=== PATIENT | female | born 2005 | race Caucasian/White ===

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

== ENCOUNTER 2024-12-22 10:54 | Outpatient (CLI) | payer OTHER, SELFPAY ==
[2024-12-22 11:18] LABS: Hematocrit 42.5 % (37.0-47.0); Hemoglobin 13.9 g/dL (12.0-15.0); Immature Granulocyte Percent A 0.3 % (0-0.5); Lymphocytes Absolute Auto 1.70 K/mm3 (0.9-3.2); Mean Corpuscular HGB Conc 32.7 g/dl (32-36); Mean Corpuscular Hemoglobin 28.7 pg (26-34); Mean Corpuscular Volume 87.8 fl (80-100); Nucleated Red Blood Cells Absolute Auto 0.000 K/mm3 (0.0-0.012); Nucleated Red Blood Cells Perc 0.0 % (0.0-0.2); Platelet Count Result 168 k/mm3 (150-375); Red Blood Count 4.84 M/mm3 (4.2-5.4); White Blood Count 7.6 K/mm3 (4.5-10.0)
--- OUTSIDE RECORDS SUMMARY | 2024-12-22 11:28 | XMS_ITS | Clinical Summary ---
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 Gender Identity Not on file Sexual Orientation Not on file Last Filed Vital Signs Vital Sign Reading Time Taken Comments Blood Pressure 122/80 05/05/2020 7:59 AM ELEMENTARY SPANISH TEACHER Pulse 90 05/05/2020 7:59 AM ELEMENTARY SPANISH TEACHER Temperature 37.6 C (99.6 F) 05/05/2020 7:59 AM ELEMENTARY SPANISH TEACHER Respiratory Rate 18 05/05/2020 7:59 AM ELEMENTARY SPANISH TEACHER Oxygen Saturation 98% 05/05/2020 7:59 AM ELEMENTARY SPANISH TEACHER Inhaled Oxygen Concentration - - Weight 119.3 kg (263 lb) 05/05/2020 7:59 AM ELEMENTARY SPANISH TEACHER Height - - Body Mass Index - - Plan of Treatment Health Maintenance Due Date Last Done Comments Hepatitis C Virus (HCV) Screening 2003 Meningococcal B Immunization (2 of 2 - Trumenba SCDM 2-dose series) 04/20/2020 10/19/2019 SARS-COV-2 Immunization ( - season) 2024 Influenza Immunization (#1) 2025 11/0 08/2018, 03/13/2018, 02/14/2016, Additional history exists Respiratory Syncytial Virus (RSV) Immunization (Adult) (1 - 1-dose 75+ series) 2078 Hepatitis B Immunization Completed 004, 2003, 2003, Additional history exists Pneumococcal Immunization Combined Completed 06/18/2005, 10/05/2004, 07/06/2004, Additional history exists Hepatitis A Immunization Discontinued 01/04/2008, 05/27 Measles Mumps Rubella (MMR) Immunization Discontinued 10/05/2008, 10/05/2004 Polio (IPV) Immunization Discontinued 009, 03/29/2004, 2003, Additional history exists Varicella Immunization Discontinued 9, 10/05/2004, 07/06/2004 DTaP/Tdap/Td Immunization Discontinued 2014, 01/04/2008, 10/05/2004, Additional history exists TdaP Immunization Completed 12/19/2014 Human Papillomavirus (HPV) Immunization Completed 10/19/2019, 01/30/2018 Meningococcal Immunization (ACWY) Completed 10/19/2019, 12/19/2014 Rotavirus Immunization Aged Out No lo nger eligible based on patient's age to complete this topic Insurance [employer] A[employer] SOI Care Teams Cod Clerk Relationship Specialty Start Date End Date Ivy Olvera MD [address] [address] PCP - General Pediatrics 05/05/20
--- OUTSIDE RECORDS SUMMARY | 2024-12-22 11:28 | XMS_ITS | Clinical Summary ---
Author Organization [facility]iki [facility] Address [address] [place] [address] Care Team Providers Care Shade Bander Name Role Phone Unavailable Primary Care Provider Unavailabl e Allergies No known active allergies Medications No known medications Active Problems No known active problems Encounters Date Type Department Care Team Description 12/22/2024 10:30 AM CDT Office Visit [facility] Oncology and Hematology - [place] [address] [place] [id number] Ayad Shepherd MD Other secondary thrombocytopenia (Primary Dx) from Last 3 Months Family History Medical History Relation Name Comments No Known Problems Brother 1 Diabetes Brother 2 No Known Problems Brother 3 No Known Problems Father No Known Problems Mother Relation Name Status Comments Brother 1 Alive Brother 2 Alive Brother 3 Alive Father Alive Mother Alive Social History Tobacco Use Types Packs/Day Years Used Date Smoking Tobacco: Never Smokeless Tobacco: Never Alcohol Use Standard Drinks/Week Comments Never 0 (1 standard drink = 0.6 oz pur e alcohol) Comments Unknown Sex and Gender Information Value Date Recorded Sex Assigned at Not on file Legal Sex Female 1:29 PM CDT Gender Identity Not on file Sexual Orientation Not on file Last Filed Vital Signs Vital Sign Reading Time Taken Comments Blood Pressure 132/76 12/22/2024 10:17 AM CDT Pulse 76 12/22/2024 10:17 AM CDT Temperature 37.2 C (98.9 F) 12/22/2024 10:17 AM CDT Respiratory Rate 14 12/22/2024 10:17 AM CDT Oxygen Saturation 98% 12/22/2024 10:17 AM CDT Inhaled Oxygen Concentration - - Weight 105 kg (231 lb 6.4 oz) 12/22/2024 10:17 A M CDT Height 175.3 cm (5' 9) 12/22/2024 10:17 AM CDT Body Mass Index 34.17 12/22/2024 10:17 AM CDT Plan of Treatment Upcoming Encounters Date Type Department Care Team (Late st Contact Info) Description 01/11/2025 4:30 PM CDT Telephone Check Up [facility] Oncology and Hematology - [place] [address] [facility] [address] [place] [address] Ayad Shepherd MD [address] [facility] [employer] [address] [place] [address] Health Maintenance Due Date Last Done Comments CHLAMYDIA SCREENING (ANNUAL) 11-24 YEARS 2014 HPV VACCINES (1 - 3-dose series) 2018 DTAP/TDAP/TD VACCINES (1 - Tdap) 2022 HEPATITIS B VACCINES (1 of 3 - 19+ 3-dose series) 04/25 CERVICAL CANCER SCREENING 2024 HPV/Cotest (21-29) 2024 PAP SMEAR 2024 Preventative Visit- Commercial 05/26/2024 INFLUENZA VACCINE (#1) 2024 Insurance AETNA CHOICE POS II
--- OUTSIDE RECORDS SUMMARY | 2024-12-22 11:28 | XMS_ITS | Encounter Summary ---
Author Organization [facility] Address [address] [place] [address] Care Team Providers Care Taper And Floater Name Role Phone Unavailable Primary Care Provider Unavailabl e Reason for Referral * Radiology Services (Routine) - Closed Specialty Diagnoses / Procedures Referred By Contaleksandr t Referred To Contact Diagnoses Other secondary thrombocytopenia Procedures US ABDOMEN COMPLETE Ayad Shepherd MD [address] [address] Phone: tel: fax: [facility] [address] [address] Phone: tel: fax: Referral ID Status Reason Start Date Expiration Date V isits Requested Visits Authorized [id number] Closed [facility] CTS 12/22/2024 01/22/2026 1 1 Reason for Visit * Reason Comments Establish Care Encounter Details Date Type Department Care Team (Late st Contact Info) Description 12/22/2024 10:30 AM CDT Office Visit [facility] Oncology and Hematology - [place] [address] [place] [address] [address] [place] [address] Ayad Shepherd MD [address] [phone] Other secondary thrombocytopenia (Primary Dx) Social History Tobacco Use Types Packs/Day Years Used Date Smoking Tobacco: Never Smokeless Tobacco: Never Alcohol Use Standard Drinks/Week Comments Never 0 (1 standard drink = 0.6 oz pur e alcohol) Comments Unknown Sex and Gender Information Value Date Recorded Sex Assigned at Not on file Legal Sex Female 1:29 PM CDT Gender Identity Not on file Sexual Orientation Not on file documented as of this encounter Last Filed Vital Signs Vital Sign Reading [...] Mass Index 34.17 12/22/2024 10:17 AM CDT documented in this encounter Progress Notes * Ayad Shepherd MD - 12/22/2024 10:21 AM CDT Hematology-oncology consult Note Requesting Physician Kostas Shultz MD Primary Care Physician No primary care provider on file. Problem list There is no problem list on file for this patient. Previous TREATMENT ? Measurable Disease ? Reason for Visit Vanessa Berry is a 19 y.o. female who was referred for consultation for thrombocytopenia. History of present illness This is a pleasant 19-year-old slightly obese female who has been in [facility] referred to me for thrombocytopenia. According to the mom she has been dealing with a low platelet count for last 2 years duration. Mother also has elevated mean platelet volume but platelet counts were normal. Patient has been dealing with easy bruising but no bleeding. Her menstrual bleeding is also heavy for the first few days. She denies any history of liver disease and spleen disorders. Denies any fever chills or night sweats. Denies any abdominal pain. Denies any diarrhea and constipation. No melena hematochezia. She has occasional headaches. Her labs from August 2024 showed WBC 3.6 hemoglobin 13.2 with platelet of 126,000. Denies any other complaints. Past Medical History No past medical history on file. Surgical History Past Surgical History: Procedure Laterality Date HX LASER EYE SURGERY HX TONSILLECTOMY Medications No current outpatient medications on file. No current facility-administered medications for this visit. Allergies No Known Allergies Immunizations: There is no immunization history on file for this patient. Family History Family History Problem Relation Name Age of Onset No Known Problems Father No Known Problems Mother No Known Problems Brother Diabetes Brother No Known Problems Brother Social History Social History Tobacco Use Smoking status: Never Smokeless tobacco: Never Substance Use Topics Alcohol use: Never Review of Systems Constitutional: Patient did not mention fever; no night sweats; no anorexia; no weight loss; no fatique NEENT: Patient did not mention headache; no change in vision; no change in hearing; no sore throat;no dysphagia Respiratory: Patient did not mention shortness of breath; no pleuritic chest pain; no cough; no hemoptysis Cardiac: Patient did not mention cardiac-like chest pain; no palpitations; no orthopnea; no PND; noDOE Breasts: Patient did not mention tenderness; no masses GI: Patient did not mention abdominal pain; no nausea; no vomiting; no diarrhea; no hematochezia; no melena : Patient did not mention dysuria; no frequency; no hesitancy; no hematuria CORRECTIONAL MEDICINE PHYSICIAN: Musculosketetal: Patient did not mention bone pain; no arthralgia; no joint swelling; no myalgia; Skin: Patient did not mention pruritis; no rash; no petechiae; no ecchymoses Endocrine: Patient did not mention polydipsia; no polyuria; no unusual weight gain Neuro: Patient did not mention headache; no change in vision; no sensory changes; no muscle weakness; no confusion; no seizures Psych: Patient did not mention anxiety; no depression; Physical Exam Vitals: As per nursing note Constitutional: Well developed, well nourished, no acute distress, non-toxic appearance Teeth and gum. No signs of infection or swelling. Eyes: PERRL, conjunctiva normal HEENT: Atraumatic, external ears normal, nose normal, oropharynx moist, no pharyngeal exudates. no sinus tenderness Neck- normal range of motion, no tenderness, supple Respiratory: No respiratory distress, normal breath sounds, no rales, no wheezing Cardiovascular: Normal rate, normal rhythm, no murmurs, no gallops, no rubs GI: Soft, nondistended, normal bowel sounds, nontender, no splenomegaly, no hepatomegaly, no mass, no rebound, no guarding : No costovertebral angle tenderness Musculoskeletal: No edema, no tenderness, no deformities. Back- no tenderness Integument: Well hydrated, no rash, Digits and nails inspection normal Lymphatic: No lymphadenopathy noted Neurologic: Alert & oriented x 3, CN 2-12 normal, normal motor function, normal sensory function, no focal deficits noted Psychiatric: Speech and behavior appropriate ? labs No results found for this or any previous visit (from the past 24 hours). Labs from August 24, 2024 showed WBC 3.6 hemoglobin 13.2 platelet 126,000 mean platelet volume 12.7 neutrophil 59% lymphocyte 31% Pathology ? Imaging & Other Studies Performance Status? Assessment / Plan: ? Thrombocytopenia. Patient is a pleasant 19-year-old slightly obese female who has been [place] and currently not taking any medications other than multivitamins. She has been dealing with thrombocytopenia for the last 2 years duration. She denies any chest pain and shortness of breath. Denies any night sweats fevers and chills. Her weight and appetite stable. She has heavy menstrual bleeding. Denies any history of liver disease. She does not drink any alcohol. Mother informed me that she also has high mean platelet volume but normal platelet counts.I have discussed the differential diagnosis of thrombocytopenia with the patient that includes nutritional deficiency like jared min B-12 and folic acid deficiency and iron deficiency. We also discussed possibility of congenitalthrombocytopenia. Other possibilities include drug induced thrombocytopenia, autoimmune thrombocytopenia, bone marrow disorders like myelodysplasia and splenic sequestration with possible liver disease. I will order the workup that would include abdominal ultrasound, vitamin B12 and folic acid levels and iron studies. I will repeat CBC with differential and CMP. I will also check platelet antibodies. No need for bone marrow biopsy testing. I answered all the questions to patient's satisfaction. Thank you very much for allowing me to participate in Vanessa Berry's evaluation and management. Please feel free to contact if I can be of any further assistance in your patient???s care requiring hematology or oncology evaluation. Sincerely, ? ? Ayad Shepherd M.D. cell TOBACCO COUNSELING She is not a tobacco/nicotine user. Ayad Shepherd MD ,12/22/2024 10:42 AM ? Total time spent 60 minutes, two third of the total time spent counseling patient [id number]. CC:?Kostas Shultz MD documented in this encounter Plan of Treatment Upcoming Encounters Date Type Department Care Team (Late st Contact Info) Description 01/11/2025 4:30 PM CDT Telephone Check Up [facility] Oncology and Hematology - [place] [address] [facility] [address] [place] [address] Ayad Shepherd MD [address] [facility] [address] [place] [address] Scheduled Orders Name Type Priority Associated Diagnoses Orde r Schedule CBC WITH DIFFERENTIAL Lab Stat Other secondary thrombocytopenia Expected: 12/22/2024, Expires: 12/22/2025 COMPREHENSIVE METABOLIC PANEL Lab Stat Other secondary thrombocytopenia Expected: 12/22/2024, Expires: 12/22/2025 FERRITIN Lab Routine Other secondary thrombocytopenia Expected: 12/22/2024, Expires: 12/22/2025 IRON, TIBC, AND PERCENT SATURATION Lab Routine Other secondary thrombocytopenia Expected: 12/22/2024, Expires: 12/22/2025 VITAMIN B12 AND FOLATE Lab Routine Other secondary thrombocytopenia Expected: 12/22/2024, Expires: 12/22/2025 METHYLMALONIC ACID Lab Routine Other secondary thrombocytopenia Expected: 12/22/2024, Expires: 12/22/2025 TRANSFERRIN RECEPTOR TFR SOLUBLE Lab Routine Other secondary thrombocytopenia Expected: 12/22/2024, Expires: 12/22/2025 US ABDOMEN COMPLETE Imaging Routine Other secondary thrombocytopenia 1 Occurrences starting 12/22/2024 until 12/22/2025 MISCELLANEOUS LAB TEST Lab Routine Other secondary thrombocytopenia Expected: 12/22/2024, Expires: 12/22/2025 HU SCREEN W/REFLEX Lab Routine Other secondary thrombocytopenia Expected: 12/22/2024, Expires: 12/22/2025 documented as of this encounter Visit Diagnoses Diagnosis Other secondary thrombocytopenia- Primary documented in this encounter
--- OUTSIDE RECORDS SUMMARY | 2024-12-22 11:28 | XMS_ITS | Clinical Summary ---
Author Organization [facility] [employer] Address [address] [facility] [place] [address] Care Team Providers Care Station Chief Name Role Phone Ivy Olvera MD Primary Care Provider [phone] Source Comments [facility] [employer],non-owned Affiliates and Associated Physician Practices is amultiple site organization consisting of ambulatory clinics and hospital sitesin [place], [place], [place] and [place]. This disclosure is being madepursuant to the Care Everywhere program and may not contain all information available regarding this patient. Last updated 18.[facility] [employer] Allergies No known active allergies Medications * Be aware that medications may not be up to date on this document. Alwaysverify current medications with the patient. clindamycin-sandra zoyl peroxide (BENZACLIN) 1-5 % gelIndications: Encounter for medication refill Apply to affected area 2 times daily 50 g 2 04/27/2019 Active Active Problems No known active problems Social History Tobacco Use Types Packs/Day Years Used Date Smoking Tobacco: Never Smokeless Tobacco: Never Comments No Sex and Gender Information Value Date Recorded Sex Assigned at Not on file Legal Sex Female 7:[address] ENG[address]ER Gender Identity Not on file Sexual Orientation Not on file Last Filed Vital Signs Vital Sign Reading Time Taken Comments Blood Pressure 124/82 02/18/2020 9:04 AM CDT Pulse 89 02/18/2020 9:04 AM CDT Temperature 36.4 C (97.6 F) 02/18/2020 9:04 AM CDT Respiratory Rate 16 02/18/2020 9:04 AM CDT Oxygen Saturation 98% 02/18/2020 9:04 AM CDT Inhaled Oxygen Concentration - - Weight 117.9 kg (260 lb) 02/18/2020 9:04 AM CDT Height 175.3 cm (5' 9) 02/18/2020 9:04 AM CDT Body Mass Index 38.4 02/18/2020 9:04 AM CDT Plan of Treatment Health Maintenance Due Date Last Done Comments HIV SCREENING 2018 HPV VACCINE (1 - 3-dose series) 2018 CHLAMYDIA/GONORRHEA SCREENING 2019 MENINGOCOCCAL (Group B) VACC INE SHARED DECISION-MAKING (1 of 2 - Standard) 2019 HEPATITIS C SCREENING 05/05/2021 DTAP/TDAP/TD VACCINES (1 - Tdap) 2022 HEPATITIS B VACCINE (1 of 3 - 19+ 3-dose series) 2022 COVID-19 VACCINE (1 - 2023-2 5 season) 2024 DEPRESSION SCREENING 05/26/2024 INFLUENZA VACCINE (#1) 2025 ZOSTER VACCINE (1 of 2) 2053 HIB VACCINE Aged Out No longer eligi ble based on patient's age to complete this topic MENINGOCOCCAL GROUPS A/C/Y/W VACCINE Aged Out No longer eligible b ased on patient's age to complete this topic PNEUMOCOCCAL VACCINE Aged Out No long er eligible based on patient's age to complete this topic Insurance AETNA Care Teams Station Chief Relationship Specialty Start Date End Date Ivy Olvera MD [address] [place] [id number] PCP - General Pediatrics 04/19/17
[2024-12-22 16:42] LABS: Iron 129 ug/dL (37-170)
[2024-12-22 16:43] LABS: Alanine Aminotransferase 23 U/L (6-35); Albumin Level 4.5 g/dL (3.5-5.1); Alkaline Phosphatase 43 U/L (38-126); Anion Gap 7 mmol/L (4-12); Aspartate Amino Transferase 55 U/L (14-36); Bilirubin,Total 0.7 mg/dL (0.2-1.3); Blood Urea Nitrogen 16 mg/dL (7-17); Calcium 9.4 mg/dL (8.4-10.2); Carbon Dioxide 26 mmol/L (22-30); Chloride 102 mmol/L (98-107); Estimated Glomerular Filt Rate > 60; Glucose 86 mg/dL (65-110); Potassium 4.5 mmol/L (3.4-5.0); Sodium 135 mmol/L (137-145); Total Protein 8.2 g/dL (6.3-8.2)
[2024-12-22 17:00] LABS: Percent Iron Saturation 40 % (20-50)
[2024-12-22 17:25] LABS: Ferritin 44.40 ng/mL (6.24-137)
[2024-12-22 17:55] LABS: Vitamin B12 502.0 pg/mL (239-931)
== END 2024-12-22 10:55 | disposition home or self-care (01) ==
LOC: ANHLAB 10:59
PROVIDERS: PCP Internal Medicine; Visit Provider Internal Medicine Hematology & Oncology
DX: D69.59 Other secondary thrombocytopenia (principal)
CPT/HCPCS: 36415; 80053; 82607; 82728; 82746; 83540; 83550; 83921; 84238; 85025; 86022

== ENCOUNTER 2025-01-06 10:45 | Outpatient (CLI) | payer OTHER, SELFPAY ==
--- OUTSIDE RECORDS SUMMARY | 2025-01-06 11:02 | XMS_ITS | Clinical Summary ---
Author Organization [facility] [place] Address [address] [place] [address] Care Team Providers Care Mold Bunch Trimmer Name Role Phone Unavailable Primary Care Provider Unavailabl e Allergies No known active allergies Medications No known medications Active Problems No known active problems Encounters Date Type Department Care Team Description 12/29/2024 External Device Data STL ABSTRACTION Provider, Abstract 12/28/2024 External Device Data ST[facility] ABSTRACTION Provider, Abstract 12/28/2024 External Device Data [facility] ABSTRACTION Provider, Abstract 12/28/2024 Orders Only [facility] - [place] [address] [place] [address] Ayad Shepherd MD 12/27/2024 Orders Only [facility] - [place] [address] [place] [address] Ayad Shepherd MD 12/23/2024 Orders Only [facility] - [place] [address] [place] [address] Ayad Shepherd MD 12/22/2024 10:30 AM CDT Office Visit [facility] - [place] [address] [place] [address] Ayad Shepherd MD Other secondary thrombocytopenia (Primary [...] 01/11/2025 4:30 PM CDT Telephone Check Up [facility] - [place] [address] [facility] [address] [place] [address] Ayad Shepherd MD [address] [facility] [address] [place] [address] Health Maintenance Due Date Last Done Comments CHLAMYDIA SCREENING (ANNUAL) 11-24 YEARS 2014 HPV VACCINES (1 - 3-dose series) 2018 DTAP/TDAP/TD VACCINES (1 - Tdap) 2022 HEPATITIS B VACCINES (1 of 3 - 19+ 3-dose series) 04/25 CERVICAL CANCER SCREENING 2024 HPV/Cotest (21-29) 2024 PAP SMEAR 2024 Preventative Visit- Commercial 05/26/2024 INFLUENZA VACCINE (#1) 2024 Procedures Procedure Name Priority Date/Time Associated Diagnosis Comments BETA 2 GLYCOPROTEIN I ANTIBODIES Routine 12/22/2024 10:39 AM CDT CHG SOLUBLE TRANSFERRIN RECEPTOR Routine 12/22/2024 10:33 AM CDT COMPREHENSIVE METABOLIC PANEL Routine 12/22/2024 8:37 AM CDT COMPREHENSIVE METABOLIC PANEL Routine 12/22/2024 8:34 AM CDT CBC WITH AUTODIFFERENTIAL Routine 2024 8:02 AM CDT METHYLMALONIC ACID Routine 12/22/2024 7: 58 AM CDT from Last 3 Months Results * BETA 2 GLYCOPROTEIN I ANTIBODIES (12/22/2024 10:39 AM CDT) Blood us Ayad Shepherd MD CHEMISTRY ORDERABLES Final Resu lt * CHG SOLUBLE TRANSFERRIN RECEPTOR (12/22/2024 10:33 AM CDT) us Ayad Shepherd MD CHG - LABORATORY Final Result * COMPREHENSIVE METABOLIC PANEL (12/22/2024 8:37 AM CDT) Only the most recent of2 resultswithin the time period is included. Blood us Ayad Shepherd MD CHEMISTRY ORDERABLES Final Resu lt * CBC WITH AUTODIFFERENTIAL (12/22/2024 8:02 AM CDT) Blood us Ayad Shepherd MD HEMATOLOGY ORDERABLES Final Res ult * METHYLMALONIC ACID (12/22/2024 7:58 AM CDT) Blood us Ayad Shepherd MD CHEMISTRY ORDERABLES Final Resu lt from Last 3 Months Insurance [employer] CHOICE POS II
--- OUTSIDE RECORDS SUMMARY | 2025-01-06 11:02 | XMS_ITS | Clinical Summary ---
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 Gender Identity Not on file Sexual Orientation Not on file Last Filed Vital Signs Vital Sign Reading Time Taken Comments Blood Pressure 122/80 05/05/2020 7:59 AM ROOFING LABORER Pulse 90 05/05/2020 7:59 AM ROOFING LABORER Temperature 37.6 C (99.6 F) 05/05/2020 7:59 AM ROOFING LABORER Respiratory Rate 18 05/05/2020 7:59 AM ROOFING LABORER Oxygen Saturation 98% 05/05/2020 7:59 AM ROOFING LABORER Inhaled Oxygen Concentration - - Weight 119.3 kg (263 lb) 05/05/2020 7:59 AM ROOFING LABORER Height - - Body Mass Index - [...] patient's age to complete this topic Insurance Advebs [employer] SOI Care Teams Remelt Sugar Boiler Relationship Specialty Start Date End Date Ivy Olvera MD [address] [place] [address] [id number] PCP - General Pediatrics 05/05/20
--- OUTSIDE RECORDS SUMMARY | 2025-01-06 11:02 | XMS_ITS | Clinical Summary ---
Author Organization [facility] Address [address] [place] [address] Care Team Providers Care Fbi Profiler Name Role Phone Ivy Olvera MD Primary Care Provider Source Comments [facility],non-owned Affiliates and Associated Physician Practices is amultiple site organization consisting of ambulatory clinics and hospital sitesin [place], [place], [place] and [place]. This disclosure is being madepursuant to the Care Everywhere program and may not contain all information available regarding this patient. 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
[2025-01-07 14:08] LABS: ANA by IFA Rfx Titer/Pattern Negative (.)
== END 2025-01-06 10:46 | disposition home or self-care (01) ==
LOC: ANHLAB 10:46
PROVIDERS: PCP Pediatrics Adolescent Medicine; Visit Provider Internal Medicine Hematology & Oncology
DX: D69.59 Other secondary thrombocytopenia (principal)
CPT/HCPCS: 86038